=== PATIENT | female | born 1970 | race Hispanic/Latino ===

== ENCOUNTER → 2020-11-12 | Outpatient (CLI) | payer OTHER | LOC: MAMMO 13:08 | PROVIDERS: ATTEND Internal Medicine | DX: Z12.31 Encounter for screening mammogram for malignant neoplasm of breast (principal); Z00.00 Encounter for general adult medical examination without abnormal findings; M54.5 Low back pain | CPT/HCPCS: 71046; 72100; 77067 ==

== ENCOUNTER → 2020-12-16 | Outpatient (CLI) | payer OTHER | LOC: US 07:35 | PROVIDERS: ATTEND Internal Medicine | DX: R74.8 Abnormal levels of other serum enzymes (principal) | CPT/HCPCS: 76705 ==